=== PATIENT | female | born 1995 ===

== ENCOUNTER 2020-06-15 12:01 | Emergency (ER) | payer BC, SELFPAY ==
[2020-06-15 13:42] VITALS: BP 132/91; PULSE 88; RESP 18; TEMP 35.6; O2SAT 100
--- NOTE | 2020-06-15 15:15 | ED.GENADULT ---
HPI - General Adult General Chief complaint: Skin/Abscess/Foreign Body Stated complaint: poss wound infection Time Seen by Provider: 06/15/20 14:19 Source: patient Mode of arrival: ambulatory Limitations: no limitations History of Present Illness HPI narrative: Patient presents with chief complaint of drainage from laceration to the center of her forehead that she sustained on 06-13-20 after opening a cabinet door hitting herself in the head. Patient denies loss of consciousness, changes in neurological status, persistent vomiting or headache. Patient reports that she noticed drainage from the area today and she was concerned for infection. Patient states she needs a primary care provider to establish care with. Patient states she is otherwise been doing well although she has had some concussion-like symptoms such as headache with concentration. Related Data Allergies Allergy/AdvReac Type Severity Reaction Status Date / Time fluoxetine [From Prozac] AdvReac Other Verified 06/15/20 13:48 Review of Systems Review of Systems: Narrative: CONSTITUTIONAL: Denies fever, chills, or sweats. EYES: Denies visual changes, redness, or discharge. ENT: Denies rhinorrhea, congestion, sore throat, or otalgia. CARDIOVASCULAR: Denies chest pain, palpitations, or edema. RESPIRATORY: Denies cough or dyspnea. GASTROINTESTINAL: Denies abdominal pain, nausea, vomiting, or diarrhea. GENITOURINARY: Denies dysuria or hematuria. SKIN: Reports laceration drainage denies rash or itching. MUSCULOSKELETAL: Denies back pain, joint pain, or myalgia. NEUROLOGIC: Denies headache, numbness, dizziness, or weakness. PSYCHIATRIC: Denies anxiety or depression. PMFSH Social History Social History Gender identity (if verbalized by the patient): Female Exam Narrative: Exam Narrative: GENERAL: well-nourished, and in no acute distress. Patient is unkempt. HEAD: Normocephalic, atraumatic. Dermabond laceration noted to the frontal, center aspect of the forehead. There is mild erythema, but there is not any drainage expressed from the wound. EYES: PERRLA and EOMI. NECK: Supple. No adenopathy or masses. No carotid bruits or JVD CHEST: Clear to auscultation. No respiratory distress. No wheezes rales or rhonchi HEART: Regular rate and rhythm. No murmur heard. Normal peripheral pulses. EXTREMITIES: Normal range of motion. No edema. SKIN: Warm, dry, no rash. NEURO: No neurological deficits. Alert and oriented x3. PSYCH: Normal mood and affect. Course Vital Signs Vital signs: Vital Signs Temperature 96.0 F L 06/15/20 13:42 Pulse Rate 88 06/15/20 13:42 Respiratory Rate 18 06/15/20 13:42 Blood Pressure 132/91 H 06/15/20 13:42 Pulse Oximetry 100 06/15/20 13:42 Temperature 96.0 F L 06/15/20 13:42 Pulse Rate 88 06/15/20 13:42 Respiratory Rate 18 06/15/20 13:42 Blood Pressure 132/91 H 06/15/20 13:42 Pulse Oximetry 100 06/15/20 13:42 Medical Decision Making MDM Narrative Medical decision making narrative: Patient is unkempt and there is some debris around the wound site. There is no discharge expressible from the area. No underlying abscess palpated. Patient will be put on Keflex. Patient instructed to follow-up with primary care for reevaluation. Patient instructed to continue head precautions to avoid additional head injury. Vital Signs Vital Signs: Vital Signs Temperature 96.0 F L 06/15/20 13:42 Pulse Rate 88 06/15/20 13:42 Respiratory Rate 18 06/15/20 13:42 Blood Pressure 132/91 H 06/15/20 13:42 Pulse Oximetry 100 06/15/20 13:42 Temperature 96.0 F L 06/15/20 13:42 Pulse Rate 88 06/15/20 13:42 Respiratory Rate 18 06/15/20 13:42 Blood Pressure 132/91 H 06/15/20 13:42 Pulse Oximetry 100 06/15/20 13:42 Discharge Plan Discharge Clinical Impression: Cellulitis Qualifiers: Site of cellulitis: face Qualified Code(s): L03.211 - Cellulitis of face Head injury Qualifiers: Encounter ty
[2020-06-15 15:45] VITALS: BP 118/75; PULSE 75; RESP 16; O2SAT 100
== END 2020-06-15 15:45 | disposition home or self-care (01) ==
PROVIDERS: Emergency Provider Emergency Medicine
DX: L03.211 Cellulitis of face (principal); S01.81XA Laceration without foreign body of other part of head, initial encounter; W22.8XXA Striking against or struck by other objects, initial encounter
CPT/HCPCS: 99283

== ENCOUNTER 2020-09-28 03:31 | Emergency (ER) | payer BC, SELFPAY ==
--- NOTE | ~2020-09-28 | XR_ITS ---
EXAMINATION: XR hand RT min 3V DATE: 09/28/2020 04:01 INDICATION: Right hand injury. TECHNIQUE: 3 views of right hand were obtained. COMPARISON: Right hand radiographs 02/25/2008 FINDINGS: There is a comminuted fracture of neck and distal diaphysis of fifth metacarpal. The main d istal fracture fragment demonstrates impaction and 20 degrees palmar angulation. Joint spaces are nor mal. IMPRESSION: 1. Comminuted fracture of neck and distal diaphysis of fifth metacarpal. Reviewed, dictated and finalized at location A.
[2020-09-28 03:52] VITALS: BP 125/82; PULSE 84; RESP 20; TEMP 36.4; O2SAT 98
--- NOTE | 2020-09-28 04:19 | ED.UPPEXIN ---
HPI - Extremity Injury (Upper) General Chief Complaint: Extremity Injury, Upper Stated Complaint: Right Hand Injury Time Seen by Provider: 09/28/20 03:39 Source: patient and RN notes reviewed Mode of arrival: ambulatory Limitations: no limitations History of Present Illness complaint: injury to: right and hand Onset (ago): hour(s) (1) Other injuries: none Handedness: right Place: home Severity: moderate Relieving factors: none Exacerbating factors: movement of extremity Context: direct blow (punched a van) Associated symptoms: denies other symptoms Related Data Allergies Allergy/AdvReac Type Severity Reaction Status Date / Time fluoxetine [From Prozac] AdvReac Other Verified 06/15/20 13:48 Review of Systems Review of Systems: All systems reviewed & are unremarkable except as noted in HPI and below PMFSH Past Medical History Medical History (Updated 09/28/20 @ 04:29 by Hao Ruiz MD) No active medical problems Surgical History Surgical History (Updated 09/28/20 @ 04:26 by Hao Ruiz MD) No pertinent past surgical history Social History Social History (Updated 09/28/20 @ 04:27 by Hao Ruiz MD) Smoking status: Current every day smoker Tobacco type: cigarettes Alcohol intake: never Substance use: current Substance use type: marijuana Gender identity (if verbalized by the patient): Female Exam Const: General: healthy appearing, no acute distress and alert Nutritional Appearance: well nourished and thin Orientation/consciousness: patient oriented x3 Other: Female nurse in room during examination. HENMT: Head: normal to inspection Ears: external ears normal Face and sinus: normal facial exam Mouth: Yes moist mucous membranes Eyes: Conjunctivae: conjunctivae normal Pupils: Equal, round and reactive pupils present EOM: EOMs intact bilaterally Neck: Neck: normal visual inspection Lymphatic: no lymphadenopathy noted Resp: Effort & Inspection: normal respiratory effort Auscultation: clear to auscultation bilaterally Cardio: Rate: regular rate Rhythm: regular rhythm GI: GI Palp: Yes Soft to palpation and No Tenderness to palpation present (GI) Auscultation: normal bowel sounds Back/Spine/Pelvis: Cervical Spine: cervical ROM normal Thoracic/Lumbar Spine: thoraco-lumbar ROM normal Skin: General skin exam: normal color Rashes: no rashes Neuro: General: patient oriented x3, moves all extremities, no meningeal signs and no focal motor deficits Speech: normal speech Gait exam (Neuro): Normal gait present Extrem: General: normal exam except as noted Psych: Appearance: grossly normal and well kempt Mental Status: mental status grossly normal Affect: normal affect Attitude: cooperative Thought content: Yes Normal thought content present Course Vital Signs Vital signs: Vital Signs Temperature 36.4 C 09/28/20 03:52 Pulse Rate 84 09/28/20 03:52 Respiratory Rate 20 09/28/20 03:52 Blood Pressure 125/82 09/28/20 03:52 Pulse Oximetry 98 09/28/20 03:52 Temperature 36.4 C 09/28/20 03:52 Pulse Rate 68 09/28/20 04:42 Respiratory Rate 18 09/28/20 04:42 Blood Pressure 125/74 09/28/20 04:42 Pulse Oximetry 99 09/28/20 04:42 Procedures Orthopedic Splinting/Casting Injury #1: Splinting/Casting Date: 09/28/20 Side: right Upper Extremity Injury Location: hand Upper Extremity Immobilizer: ulnar gutter Pre-Formed: sling OCL: short arm Pre-Procedure Neuro Vascular Exam: normal Post-Procedure Neuro Vascular Exam: normal Additional Comments: Initial fracture management completed in the ER Discharge Plan Discharge Clinical Impression: Fracture, metacarpal, neck Qualifiers: Encounter type: initial encounter Metacarpal bone: fifth Fracture type: closed Fracture alignment: nondisplaced Laterality: right Qualified Code(s): S62.366A - Nondisplaced fracture of neck of fifth metacarpal
[2020-09-28] MEDS: IBUPROFEN 600 MG TABLET PO (04:35)
[2020-09-28 04:42] VITALS: BP 125/74; PULSE 68; RESP 18; O2SAT 99
== END 2020-09-28 04:40 | disposition home or self-care (01) ==
PROVIDERS: Emergency Provider Emergency Medicine; PCP Family Medicine
DX: S62.366A Nondisplaced fracture of neck of fifth metacarpal bone, right hand, initial encounter for closed fracture (principal); W22.8XXA Striking against or struck by other objects, initial encounter
CPT/HCPCS: 29125; 73130; 99283; 99284; A4565; A9270